=== PATIENT | female | born 1975 | race Hispanic/Latino ===

== ENCOUNTER 2018-01-02 18:09 | Emergency (ER) | payer MEDICAID, OTHER ==
[2018-01-02] MEDS ORDERED: SODIUM CHLORIDE 0.9% 1000ML 3,000 ML IV ONE (18:31)
[2018-01-02] MEDS ORDERED: KETOROLAC TROMETHAMINE 30MG/ML ONE ×2 (18:32→19:04)
[2018-01-02] MEDS ORDERED: ACETAMINOPHEN 325 MG TAB ONE (18:32)
[2018-01-02 18:50] LABS: APPEARANCE,URINE Clear (CLEAR); BILIRUBIN,URINE Negative (NEGATIVE); COLOR,URINE Yellow (YELLOW); GLUCOSE, URINE (UA) Negative (NEGATIVE); KETONES,URINE Negative (NEGATIVE); LEUKOCYTE ESTERASE ,URINE Trace (NEGATIVE); NITRATE,URINE Negative (NEGATIVE); OCCULT BLOOD,URINE Moderate (NEGATIVE); PH,URINE 6.5 (5.0-8.0); PROTEIN,URINE Negative (NEGATIVE); UROBILINOGEN,URINE 0.2 mg/dL (0.2-1.0)
[2018-01-02 18:56] LABS: BASOPHILS % (AUTO) 0.3 % (0.0-5.0); EOSINOPHILS % (AUTO) 1.3 % (0.0-8.0); HEMATOCRIT 32.9 % (36-48); LYMPHOCYTES % (AUTO) 17.2 % (21.0-51.0); MEAN CORPUSCULAR HEMOGLOBIN 25.8 pg (27.0-33.0); MEAN CORPUSCULAR HGB CONC 32.6 g/dL (32.0-36.0); MONOCYTES % (AUTO) 8.1 % (3.0-13.0); NEUTROPHILS % (AUTO) 73.1 % (40.0-77.0); PLATELET COUNT (AUTO) 524 K/uL (130-400); RED BLOOD CELL COUNT(AUTO) 4.17 MIL/uL (4.00-5.50); RED CELL DISTRIBUTION WIDTH 15.9 % (11.0-15.5); WHITE BLOOD COUNT (AUTO) 8.7 K/uL (4.8-10.8)
[2018-01-02 18:57] LABS: BACTERIA,URINE Rare /HPF (None Seen); SQUAMOUS EPITHELIAL CELL,UR Few /HPF (0-2)
[2018-01-02] MEDS ORDERED: DOXYCYCLINE HYCLATE 100 MG TABLET PO ONE (19:04)
[2018-01-02 19:09] LABS: CARBON DIOXIDE 26 mmol/L (21-32); CHLORIDE 101 mmol/L (101-111); GLOMERULAR FILTR. RATE CALC 65 mL/min (>60); GLUCOSE,RANDOM 117 mg/dL (70-105); POTASSIUM 3.7 mmol/L (3.5-5.1); SODIUM SERUM 136 mmol/L (136-145); UREA NITROGEN, BLOOD 6 mg/dL (7-18)
[2018-01-02 19:26] LABS: ALANINE AMINOTRANSFERASE 21 U/L (12-78); ALBUMIN 3.4 g/dL (3.5-5.0); ASPARTATE AMINOTRANSFERASE 21 U/L (10-37); BILIRUBIN,TOTAL 0.2 mg/dL (0.2-1.0); CREATINE KINASE MB < 0.5 ng/mL (0.5-3.6); CREATINE KINASE, TOTAL 250 U/L (21-232); MYOGLOBIN 122 ng/mL (10-92); TOTAL PROTEIN, SERUM 8.5 g/dL (6.0-8.3); TROPONIN I < 0.04 ng/mL (0.00-0.06)
[2018-01-02 19:30] LABS: INR 0.96 (0.85-1.15); PARTIAL THROMBOPLASTIN TIME 21.7 SEC (26.3-35.5); PROTHROMBIN TIME 10.1 SEC (9.6-11.6)
[2018-01-02] MEDS ORDERED: ONDANSETRON HCL 4 MG/2 ML VIAL ONE (19:35)
[2018-01-02 19:39] LABS: RAPID GROUP A STREP NEGATIVE (NEGATIVE)
== END 2018-01-02 21:26 | disposition home or self-care (01) ==
LOC: EDH 18:09
DX: J16.8 Pneumonia due to other specified infectious organisms (principal); R79.1 Abnormal coagulation profile
CPT/HCPCS: 36415; 71046; 80053; 81001; 82550; 82553; 83605; 83874; 84484; 85025; 85610; 85730; 87040; 87088; 87804 ×2; 87880; 96374; 96375; 99285; J1885 ×2; J2405; J7030

== ENCOUNTER 2024-04-24 02:10 | Emergency (ER) | payer SELFPAY ==
[~2024-04-24] VITALS: Ht 162.6 cm; Wt 89.8 kg
[~2024-04-24 02:10] MED LIST: IBUP-1493 PO
[2024-04-24] MEDS: acetaMINOPHEN 325 MG TAB PO ONE (02:37)
[2024-04-24] MEDS: LACTATED RINGERS 1000ML 1,000 ML IV ONE (02:37)
[2024-04-24 03:02] LABS: BASOPHILS # (AUTO) 0.03 K/uL (0.00-0.20); BASOPHILS % (AUTO) 0.3 % (0.0-5.0); EOSINOPHILS # (AUTO) 0.15 K/uL (0.00-0.70); EOSINOPHILS % (AUTO) 1.3 % (0.0-8.0); HEMATOCRIT 43.9 % (36-48); IMMATURE GRANULOCYTE ABSOLUTE 0.04 K/uL (0-1); LYMPHOCYTES % (AUTO) 41.8 % (21.0-51.0); MEAN CORPUSCULAR HEMOGLOBIN 28.6 pg (27.0-33.0); MEAN CORPUSCULAR HGB CONC 31.9 g/dL (32.0-36.0); MEAN CORPUSCULAR VOLUME 89.8 fL (79-99); MONOCYTES # (AUTO) 0.5 K/uL (0.1-1.0); MONOCYTES % (AUTO) 4.2 % (3.0-13.0); NEUTROPHILS # (AUTO) 6.3 K/uL (1.8-7.7); NEUTROPHILS % (AUTO) 52.1 % (40.0-77.0); PLATELET COUNT (AUTO) 415 K/uL (130-400); RED BLOOD CELL COUNT(AUTO) 4.89 MIL/uL (4.00-5.50); RED CELL DISTRIBUTION WIDTH 12.2 % (11.0-15.5)
[2024-04-24] MEDS: ketOROlac 30MG VIAL (30MG/ML) IVP ONE (03:10)
[2024-04-24] MEDS: ketOROlac 30MG VIAL (30MG/ML) ONE (03:10)
[2024-04-24 03:13] LABS: POTASSIUM 3.7 mmol/L (3.5-5.1)
[2024-04-24 04:10] LABS: HCG,QUALITATIVE URINE NEGATIVE (NEGATIVE)
[2024-04-24] MEDS: morPHINE 2 MG SYG IVP ONE ×2 (04:16→06:30)
[2024-04-24 04:27] LABS: APPEARANCE,URINE TURBID (CLEAR); BILIRUBIN,URINE NEGATIVE (NEGATIVE); COLOR,URINE LIGHT-ORANGE (YELLOW); GLUCOSE, URINE (UA) NEGATIVE (NEGATIVE); KETONES,URINE 5 mg/dL (NEGATIVE); LEUKOCYTE ESTERASE ,URINE 250 Leu/uL (NEGATIVE); NITRATE,URINE NEGATIVE (NEGATIVE); OCCULT BLOOD,URINE LARGE (NEGATIVE); PH,URINE 5.5 (5.0-8.0); PROTEIN,URINE 70 mg/dL (NEGATIVE); UROBILINOGEN,URINE 0.2 mg/dL (0.2-1.0)
[2024-04-24 04:29] LABS: ADD UA MICROSCOPIC YES
[2024-04-24 04:36] LABS: BACTERIA,URINE MOD /HPF (None Seen); MUCUS,URINE MOD LPF (None Seen); RBC,URINE TNTC /HPF (0-1); SQUAMOUS EPITHELIAL CELL,UR MOD /HPF (0-2); WBC CLUMP MOD /HPF (0-1); WBC,URINE 51-100 /HPF (0-1)
[2024-04-24] MEDS ORDERED: IOHEXOL 350 MG/ML 100ML INFUS..BTL IV ONE (05:59)
[2024-04-24] MEDS: ondanSETRON 4MG INJ IVP ONE (06:31)
[2024-04-24] MEDS: 0.9%NACL 1000ML 1,000 ML IV SCH (06:31)
[2024-04-24 06:38] VITALS: BP 143/84
[2024-04-24] MEDS: tamSULOsin HCL 0.4 MG CAP.ER.24H PO ONE (06:46)
[2024-04-24] MEDS ORDERED: ACET-2079 PO (08:46)
[2024-04-24] MEDS ORDERED: IBUP-2077 PO (08:46)
[2024-04-24 09:03] VITALS: PULSE 91; RESP 14; TEMP 98.9; O2SAT 93
== END 2024-04-24 09:08 | disposition home or self-care (01) ==
LOC: EDH 02:10
DX: N20.0 Calculus of kidney (principal); Z79.899 Other long term (current) drug therapy; Z98.890 Other specified postprocedural states
CPT/HCPCS: 99285; 74177; 96374; 96361; 96375; 80048; 85025; 87086; 81001; 81025; 36415; J7120; J2270; J7030; J2405; J1885; Q9967